=== PATIENT | female | born 1945 | race Caucasian/White ===

== ENCOUNTER → 2017-03-20 | Outpatient (CLI) | payer MEDICARE ==
--- NOTE | 2017-03-20 16:29 | Diagnostic Imaging Report ---
EXAMINATION: Three views of the right wrist. INDICATION: Fall. FINDINGS: There is an impacted slightly dorsally angulated fracture of the distal radius. No definitive extension into the articular surface is seen. No subluxation or dislocation. No radiopaque foreign body. No fracture is seen in the distal ulna. Moderate degenerative changes in the intercarpal joints seen. IMPRESSION: Impacted dorsal angulated distal radius fracture. The findings were called to Jenise Shankar, nurse practitioner taking care of the patient by Dr. Pittman at time of dictation. Dictated by: Dictated on workstation # [id number]
== END ==
LOC: RAD 15:45
PROVIDERS: ATTEND Nurse Practitioner Family
DX: S52.501A Unspecified fracture of the lower end of right radius, initial encounter for closed fracture (principal); W19.XXXA Unspecified fall, initial encounter
CPT/HCPCS: 73110

== ENCOUNTER → 2017-06-04 | Outpatient (CLI) | payer MEDICARE ==
[2017-06-04] VITALS (8 sets, daily range): BP systolic 124–134; BP diastolic 73–78
[~2017-06-04] VITALS: Ht 170.2 cm; Wt 73.0 kg
[~2017-06-04] MED LIST: NS IV 500 ML 500 ML IV NR; NS IV 500 ML 500 ML ONE
== END ==
LOC: SDC 11:54
DX: D64.9 Anemia, unspecified (principal)
CPT/HCPCS: 36415; 36430; 86850; 86900; 86901; 86920

== ENCOUNTER 2017-06-22 11:00 | Outpatient (RCR) | payer MEDICARE ==
[2017-06-13 11:38] VITALS: BP 161/97
[2017-06-13 12:36] VITALS: BP 161/97
[2017-06-15 11:00] VITALS: BP 140/81
[2017-06-18] MEDS: IRON SUCROSE 200 MG/NS 100 ML (IVPB) IV NR ×2 (11:25)
[2017-06-18 12:15] VITALS: BP 142/86
[2017-06-20 11:15] VITALS: BP 146/90
[2017-06-20] MEDS: IRON SUCROSE 200 MG/NS 100 ML (IVPB) IV NR ×2 (11:25)
[~2017-06-22] VITALS: Ht 170.2 cm; Wt 73.1 kg
[~2017-06-22 11:00] MED LIST changes: +IRON SUCROSE 200 MG/10 ML (VENOFER) VIAL IV ONE; +IRON SUCROSE 200 MG/NS 100 ML (IVPB) IV NR; +NS (IVPB) 100 ML ONE; -NS IV 500 ML 500 ML IV NR; -NS IV 500 ML 500 ML ONE
[2017-06-22] MEDS: IRON SUCROSE 200 MG/NS 100 ML (IVPB) IV NR ×2 (11:09)
[2017-06-22 12:56] VITALS: BP 133/100
== END 2017-07-21 | disposition home or self-care (01) ==
LOC: SDC 11:00
PROVIDERS: ATTEND Nurse Practitioner Family
DX: D50.0 Iron deficiency anemia secondary to blood loss (chronic) (principal)
CPT/HCPCS: 96365

== ENCOUNTER → 2021-11-15 | Outpatient (CLI) | payer MEDICARE ==
--- NOTE | 2021-11-15 17:12 | Diagnostic Imaging Report ---
INDICATION: 76-year-old female, postmenopausal. Screening for osteoporosis. COMPARISON: None. FINDINGS: AP Spine L1-L4: [BMD (g/cm2): 1.044] [T-Score: -1.3] [Z-Score: -0.1] [BMD Previous: NA] [BMD % Change: NA] LT Hip Neck: [BMD (g/cm2): 0.709] [T-Score: -2.4] [Z-Score: -0.8] LT Hip Total: [BMD (g/cm2):0.814] [T-Score:-1.5] [Z-Score: -0.2] [BMD Previous: NA] [BMD % Change: NA] RT Hip Neck: [BMD (g/cm2):0.732] [T-Score:-2.2] [Z-Score:-0.6] RT Hip Total: [BMD (g/cm2):0.8910] [T-score:-1.6] [Z-Score:-0.2] [BMD Previous:NA] [BMD % Change:NA] *Indicates significant change from prior examination based on 95% confidence level. World Health Organization criteria for BMD interpretation classify patients as Normal (T-score at or above -1.0), Osteopenic (T-score between -1.0 and -2.5) or Osteoporotic (T-score at or below -2.5). LIMITATIONS AND MODIFICATION: None. FRACTURE RISK (FRAX SCORE): The ten year probability of (%): Major Osteoporotic Fracture: [22.9] Hip Fracture: [6.6] IMPRESSION: 1. Osteopenia (Low bone mass). 2. Baseline examination. 3. See below National Osteoporosis Foundation guidelines on when to potentially initiate pharmacologic therapy. Based on the National Osteoporosis Foundation Guidelines, pharmacologic treatment should be initiated in any of the following, unless clinical conditions suggest otherwise: * Any patient with prior fragility fracture of the hip or vertebrae. A spine fracture indicates 5X risk for subsequent spine fracture and 2X risk for subsequent hip fracture. * Osteoporosis (T-score <-2.5). * Postmenopausal women and men age 50 and older with low bone mass/osteopenia (T-score between -1.0 and -2.5) by DXA and 10-year major osteoporotic fracture greater than 20% or a 10-year probability of hip fracture greater than 3%. These fracture risks are supplied above in the FRAX score, if applicable. * Clinician judgement and/or patient preferences may indicate treatment for people with 10-year fracture probabilities above or below these levels. Dictated by: Dictated on workstation # [id number]
== END ==
LOC: RAD 13:30
PROVIDERS: ATTEND Family Medicine
DX: Z13.820 Encounter for screening for osteoporosis (principal); M85.80 Other specified disorders of bone density and structure, unspecified site; Z78.0 Asymptomatic menopausal state
CPT/HCPCS: 77080